=== PATIENT | male | born 1945 | race Caucasian/White ===

== ENCOUNTER 2023-02-12 11:59 | Emergency (ER) | payer OTHER ==
[~2023-02-12 11:59] MED LIST: Iopamidol 370 76% 100 ML VIAL ONE
[2023-02-12] MEDS ORDERED: Cephalexin 250 MG CAP ONE (14:26)
[2023-02-12 15:27] LABS: SARS-CoV-2 NAA Rapid Test Not Detected (NotDetected)
== END 2023-02-12 16:00 | disposition home or self-care (01) ==
LOC: EEVIPCON 11:59 → CSHERS 11:59
DX: L03.115 Cellulitis of right lower limb (principal); L03.116 Cellulitis of left lower limb; I10 Essential (primary) hypertension; I87.2 Venous insufficiency (chronic) (peripheral); Z20.822 Contact with and (suspected) exposure to COVID-19; Z79.899 Other long term (current) drug therapy
CPT/HCPCS: 71275; 93970; U0002